=== PATIENT | female | born 1990 | race Caucasian/White ===

== ENCOUNTER 2016-09-06 23:28 | Emergency (ER) | payer MEDICARE ==
--- NOTE | ~2016-09-06 | CR151 ---
[facility] A Service [facility] RADIOLOGY TEXT RESULTS PATIENT: CELINE EASLEY LOCATION: SED : 90 UNIT #: [id number] AGE: [address]: KOKI MOHR SEX: F ORDER DR: [id number] [address] [address] [id number] E MR#: [id number] Acc #: [id number] NAME: CELINE EASLEY. : 1990 SEX: F STUDY DATE/TIME: 09/07/2016 0:50 UNIT: SED ROOM: STUDY DESCRIPTION: CR Hip Min 2 Views Rt Attending Physician: Koki Mohr Aprn Ordering Physician: Koki Mohr Aprn Primary Care Physician: Marychuy [facility] MEDICAL IMAGING REPORT This report is preliminary unless electronic signature is present. EXAM Right hip and pelvis HISTORY Fell and kitchen and landing on right hip May 17. Right hip pain. COMPARISON CT right hip 06/01/2016 and hip films 05/17/2016 FINDINGS AP pelvis and frog lateral views of the right hip submitted. Examination demonstrates advanced collapse of the patient's right femoral head with fragmentation, findings compatible with underlying avascular necrosis. Left hip appears normal. Soft tissues unremarkable. IMPRESSION Progressive fragmentation and collapse of the patient's right femoral head compatible with underlying avascular necrosis. This has shown progression from the study in April and May 2016. Dictated by... Wilfred Lopez M.D. THIS IS AN ELECTRONICALLY VERIFIED REPORT Wilfred Lopez M.D. at 09/07/2016 5:18 AM SARAH/arsenio TD: 09/07/2016 03:55 JOB #: [id number] [facility] A Service [facility] RADIOLOGY TEXT RESULTS PATIENT: CELINE EASLEY LOCATION: SED : 90 UNIT #: [id number] AGE: [address]: KOKI MOHR SEX: F ORDER DR: MEDICAL IMAGING REPORT Page 1 of 1
[~2016-09-06 23:28] MED LIST: ACETAMINOPHEN325 MG PO; ALBUTEROL17 G1 INH; ALBUTEROL17 GM INH; ASPIRIN EC81 M1 PO; ASPIRIN81 M2 PO; AURALGAN OTIC S10 M1 OT; BACTRIM DS TABL1 TAB PO; BIRTH CONTROL PILL PO; CELEXA PO; CELEXA10 MG; CELEXA20 MG PO; DEPAKOTE; FLOXIN10 ML OT; HUMALOG MIX 75/10 ML; HUMALOG MIX 75/10 ML SQ; HUMALOG100 U/M2 SUBQ; HUMULIN 70100 UNIT/1 SQ; HUMULIN 70100 UNITS/; HUMULIN 70100 UNITS/ SUBQ; HUMULIN R100 U/ML; HYDROCODON-ACE1 EAC7 PO; LANTUS SOLOSTAR3 ML SUBQ; LANTUS100 U/M1 SQ; LANTUS100 U/M1 SUBQ; LANTUS100 U/ML; LANTUS100 U/ML SUBQ; LANTUS100 UNITS/ SUBQ; LEVAQUIN PO; LEVAQUIN750 M1 PO; LEVEMIR SUBQ; LORATADINE PO; MAG-OX 400400 M1 PO; MELADOX3 MG; MELATONIN3 M3; MIRALAX17 GM PO; NOVOLIN N100 UNIT/1; NOVOLIN N100 UNIT/1 SUBQ; NOVOLIN R100 UNITS/ SUBQ; NOVOLOG FL100 UNIT/1; NOVOLOG FL100 UNIT/1 SUBQ; NOVOLOG100 U/M1; NOVOLOG100 U/ML; NOVOLOG100 U/ML SUBQ; NOVOLOG100 UNITS/; NOVOLOG100 UNITS/ INJ; PHENERGAN12.5 MG PO; POTASSIUM CHLO10 ME1 PO; REGLAN10 MG PO; REGLAN5 MG PO; ROBAXIN500 MG PO; SINGULAIR PO; TRAZODONE; VOLTAREN75 MG PO; ZITHROMAX PO; ZITHROMAX1 G/PKT PO; ZOFRAN ODT4 MG PO; ZOFRAN PO; ZOFRAN8 MG PO; ZOLOFT50 MG PO; ZYRTEC10 M2 PO
== END 2016-09-07 02:27 | disposition home or self-care (01) ==
LOC: SED 23:28 → CED 23:40 → SED 23:40
DX: M87.9 Osteonecrosis, unspecified (principal); Z86.718 Personal history of other venous thrombosis and embolism; F17.210 Nicotine dependence, cigarettes, uncomplicated; Z88.0 Allergy status to penicillin; Z91.040 Latex allergy status; Z88.1 Allergy status to other antibiotic agents; Z88.8 Allergy status to other drugs, medicaments and biological substances
CPT/HCPCS: 73502; 99283

== ENCOUNTER 2016-09-27 13:15 | Emergency (ER) | payer MEDICARE ==
[2016-09-27] MEDS ORDERED: MELATONIN10 M2 PO (13:21)
== END 2016-09-27 14:04 | disposition home or self-care (01) ==
LOC: SED 13:15
DX: S60.212A Contusion of left wrist, initial encounter (principal); J45.909 Unspecified asthma, uncomplicated; F31.9 Bipolar disorder, unspecified; F41.9 Anxiety disorder, unspecified; E11.22 Type 2 diabetes mellitus with diabetic chronic kidney disease; N18.2 Chronic kidney disease, stage 2 (mild); E11.43 Type 2 diabetes mellitus with diabetic autonomic (poly)neuropathy; K31.84 Gastroparesis; F17.210 Nicotine dependence, cigarettes, uncomplicated; Z79.4 Long term (current) use of insulin; Z88.0 Allergy status to penicillin; Z88.5 Allergy status to narcotic agent; Z91.040 Latex allergy status; Z88.8 Allergy status to other drugs, medicaments and biological substances; W22.8XXA Striking against or struck by other objects, initial encounter; Y92.009 Unspecified place in unspecified non-institutional (private) residence as the place of occurrence of the external cause
CPT/HCPCS: 29125; 99283

== ENCOUNTER 2016-11-04 23:48 | Emergency (ER) | payer MEDICARE ==
--- NOTE | ~2016-11-04 | CR126 ---
[facility]. [facility] A Service of [facility] & [facility] RADIOLOGY TEXT RESULTS PATIENT: CELINE EASLEY LOCATION: SED : 90 UNIT #: [id number] AGE: [address]: Apple Clifton MD SEX: F ORDER DR: [id number] [address] [address] [id number] E MR#: [id number] Acc #: [id number] NAME: CELINE EASLEY : 1990 SEX: F STUDY DATE/TIME: 11/05/2016 0:29 UNIT: SED ROOM: STUDY DESCRIPTION: CR Foot Complete Min 3 View Lt Attending Physician: Apple Clifton M.D. Ordering Physician: Apple Clifton M.D. Primary Care Physician: [facility] MEDICAL IMAGING REPORT This report is preliminary unless electronic signature is present. EXAM Left foot HISTORY Left foot pain after tripping while chasing dog 30 minutes ago. FINDINGS Three views of the left foot were obtained. There is a transverse fracture through the proximal fifth metatarsal bone. The other bones are normal. IMPRESSION Transverse fracture through the fifth metatarsal bone proximally, otherwise normal. Dictated by... Martin Walsh M.D. THIS IS AN ELECTRONICALLY VERIFIED REPORT Martin Walsh M.D. at 11/05/2016 1:36 PM Shannan TD: 11/05/2016 12:49 JOB #: [id number] MEDICAL IMAGING REPORT Page 1 of 1
--- NOTE | ~2016-11-04 | CR20 ---
[facility]. [facility] A Service of [facility] & [facility] RADIOLOGY TEXT RESULTS PATIENT: CELINE EASLEY LOCATION: SED : 90 UNIT #: [id number] AGE: [address]: Apple Clifton MD SEX: F ORDER DR: [id number] [address] [address] [id number] E MR#: [id number] Acc #: [id number] NAME: CELINE EASLEY : 1990 SEX: F STUDY DATE/TIME: 11/05/2016 0:29 UNIT: SED ROOM: STUDY DESCRIPTION: CR Ankle Min 3 Views Lt Attending Physician: Apple Clifton M.D. Ordering Physician: Apple Clifton M.D. Primary Care Physician: [facility] MEDICAL IMAGING REPORT This report is preliminary unless electronic signature is present. EXAM Left ankle. INDICATION Twisted left ankle 30 minutes ago chasing a dog, with pain. FINDINGS Three views of the left ankle were obtained. There is a very subtle lucent line visible in the proximal fifth metatarsal bone. It is difficult to see a discrete cortical fracture. The other bones are normal. IMPRESSION Possible subtle transverse fracture of the proximal fifth metatarsal bone. Clinical correlation is recommended. Dictated by... Martin Walsh M.D. THIS IS AN ELECTRONICALLY VERIFIED REPORT Martin Walsh M.D. at 11/05/2016 1:35 PM MARLENA/danilo TD: 11/05/2016 12:58 JOB #: [id number] MEDICAL IMAGING REPORT Page 1 of 1
[~2016-11-04 23:48] MED LIST changes: +MELATONIN10 M2 PO
[2016-11-04] MEDS ORDERED: MELATONIN2.5 MG PO (23:58)
== END 2016-11-05 01:32 | disposition home or self-care (01) ==
LOC: SED 23:48
DX: S92.352A Displaced fracture of fifth metatarsal bone, left foot, initial encounter for closed fracture (principal); E11.9 Type 2 diabetes mellitus without complications; Z88.0 Allergy status to penicillin; Z88.5 Allergy status to narcotic agent; Z88.8 Allergy status to other drugs, medicaments and biological substances; Z91.040 Latex allergy status; Z79.4 Long term (current) use of insulin; W17.2XXA Fall into hole, initial encounter; Y92.096 Garden or yard of other non-institutional residence as the place of occurrence of the external cause
CPT/HCPCS: 73610; 73630; 82947; 99284